=== PATIENT | female | born 1965 | race Caucasian/White ===

== ENCOUNTER 2018-08-12 09:17 | Emergency (ER) | payer OTHER ==
[2018-08-12] MEDS ORDERED: SODIUM CHLORIDE 1,000 ML IV SCH (09:30)
--- NOTE | 2018-08-12 09:39 | PDOC ---
History of Present Illness - General Chief Complaint: Weakness Stated Complaint: POSS CVA - History of Present Illness Initial Comments: 08/12/18 09:29 52yo F daily smoker with no PMH presents with L sided numbness. Pt reports she woke up at 6am in her [facility]. At 7:30AM, she she began to experience "ringing" in her head, but denies headache. At 8am, she began to experience b/l UE and LE numbness for which she took 1/2 a pill of xanax. At some point btwn 8am and arriving to the ED, she states the numbness became more pronounce on her LUE and LLE. She states she felt very nervous and almost like she was going to pass out, so she tried walking outside, and then tried taking a shower but when the symptoms persisted, she activated 911. She also reports feeling weak everywhere , more on the L side than the R side. She states she had a squeezing sensation to the L side of her chest which has now resolved. Denies radiation of this sensation. No hx similar sxs. Denies PMH but has not been to the doctor in many years. Denies abd pain. Denies fevers, chills, SOB, LE edema. Denies recent travel. Reports recent excessive stressors in her life. NIH Stroke Scale - Last Known Well Date/Time & Onset Date Last Known Well: 08/12/18 Time Last Known Well: 08:00 - Initial Evaluation Level of consciousness: Alert Ask patient the month and their age: Answers both correctly Ask patient to open & close eyes; make fist and let go: Obeys both correctly Best gaze (horizontal eye movement): Normal Visual field testing: No visual field loss Facial paresis (Show teeth/raise eyebrows/close eyes tight): Normal symmetrical movement Motor Function: Left Arm: Normal Motor Function: Right Arm: Normal (extends arm 90 (or 45) degrees for 10 seconds without drift Motor Function: Left Leg: Normal (extends leg 30 degrees for 5 seconds without drift) Motor Function: Right Leg: Normal (extends leg 30 degrees for 5 seconds without drift) Limb Ataxia: No ataxia Sensory(Use pinprick test arms,legs,trunk,face/side to side): Mild to moderate decrease in sensation Best language (Describe picture, name items, read sentences): No Aphasia Dysarthria (read several words): Normal articulation Extinction and Inattention: No abnormality - Total Score NIH Stroke Scale Score: 1 Past History - Past Medical History Allergies/Adverse Reactions: Allergies Allergy/AdvReac Type Severity Reaction Status Date / Time No Known Allergies Allergy Verified 08/12/18 09:20 Home Medications: Ambulatory Orders NK [No Known Home Medication] 08/12/18 Review of Systems - Review of Systems Comments:: 08/12/18 09:48 GENERAL/CONSTITUTIONAL: No fever or chills. No weakness. HEAD, EYES, EARS, NOSE AND THROAT: No change in vision. No ear pain or discharge. No sore throat. GASTROINTESTINAL: No nausea, vomiting, diarrhea or constipation. GENITOURINARY: No dysuria, frequency, or change in urination. CARDIOVASCULAR: +chest squeezing, no shortness of breath. RESPIRATORY: No cough, wheezing, or hemoptysis. MUSCULOSKELETAL: No joint or muscle swelling or pain. No neck or back pain. SKIN: No rash NEUROLOGIC: +ringing in head, no headache, vertigo, loss of consciousness, +L sided weakness and numbness ENDOCRINE: No increased thirst. No abnormal weight change. HEMATOLOGIC/LYMPHATIC: No anemia, easy bleeding, or history of blood clots. ALLERGIC/IMMUNOLOGIC: No hives or skin allergy. *Physical Exam - Physical Exam Comments: 08/12/18 09:49 GENERAL: Awake, alert, and fully oriented, in no acute distress. Appears nervous HEAD: No signs of trauma EYES: PERRLA, EOMI, sclera anicteric, conjunctiva clear ENT: Oropharynx clear without exudates. Moist mucosa NECK: Normal ROM, supple, no lymphadenopathy, JVD, or masses LUNGS: Breath sounds equal, clear to auscultation bilaterally. No wheezes, and no crackles HEART: Regular rate and rhythm, normal S1 and S2, no murmurs, rubs or gallops ABDOMEN: Soft, nontender, normoactive bowel sounds. No guarding, no rebound. No masses EXTREMITIES: Normal range of motion, no edema. No cords, erythema, or tenderness NEUROLOGICAL: Normal speech, cranial nerves intact, negative pronator drift, 5/ 5 strength in all 4 extremities, decreased sensation to light touch on LUE and LLE, normal cerebellar exam, normal gait, normal reflexes and tone SKIN: Warm, Dry, normal turgor, no rashes or lesions noted. Heart Score/ECG Review #1 08/12/18 09:51 Twelve-lead EKG was performed and reviewed by me. Normal sinus rhythm, rate 82. Normal axis. No ST elevations. ED Treatment Course - LABORATORY CBC & Chemistry Diagram: 08/12/18 05:51 08/12/18 05:51 - RADIOLOGY Radiology Studies Ordered: Category Date Time Status HEAD CT (STROKE) [CT] Stat CT Scan 08/12/18 09:21 Ordered Medical Decision Making - Medical Decision Making 08/12/18 09:56 52yo F presents to the ED with b/l numbness to UE and LE, now more decreased sensation on LUE and LLE. +decreased sensation to light touch in LUE and LLE. NIHSS 1. CTH grossly negative on my read. FS normal. Case discussed with Dr. Gerard, in light of atypical CVA story and low NIHSS, will not give TPA Plan to do cardiac w/u in light of resolved chest squeezing, although EKG non ischemic Per Dr. Gerard, will also obtain MRI head for furher neuro evaluation Aortic dissection also a consideration due to neuro + cardiac sxs, although pt' s UE and LE pulses are equal, as are her blood pressures b/l 08/12/18 13:52 CTH neg CTA chest/abd/pelv neg for dissection Numbness has decreased after reglan MRI pending DDx includes CVA vs conversion d/o Case discussed with Dr. Austin, pt accepted to Dr. Pinedo's service Case discussed in detail with admitting physician including history, physical exam and ancillary studies. Admitting physician has assumed care for the patient, will follow all pending diagnostics and will complete the evaluation and treatment. *DC/Admit/Observation/Transfer Diagnosis at time of Disposition: Left sided numbness - Discharge Dispostion Condition at time of disposition: Stable Decision to Admit order: Yes - Referrals - Patient Instructions - Post Discharge Activity - Attestations Physician Attestion: 08/12/18 13:55 I, Dr. Pete Causey MD, attest that this document has been prepared under my direction and personally reviewed by me in its entirety. I further attest, that it accurately reflects all work, treatment, procedures and medical decision -making performed by me.
[2018-08-12 09:53] LABS: BASO % 0.7 % (0-2.0); EOS % 0.5 % (0-4.5); HEMOGLOBIN 15.6 GM/dL (10.7-15.3); LYMPH % 19.4 % (8-40); MCH 35.2 pg (25.7-33.7); MCHC 35.5 g/dl (32.0-36.0); MEAN CELL VOLUME 99.1 fl (80-96); MEAN PLT VOLUME 8.4 fl (7.5-11.1); MONO % 6.9 % (3.8-10.2); NEUT % 72.5 % (42.8-82.8); PLATELET COUNT 340 K/MM3 (134-434); RBC 4.44 M/mm3 (3.60-5.2); RDW 14.5 % (11.6-15.6)
[2018-08-12 09:58] LABS: INR 1.03 (0.83-1.09); PROTHROMBIN TIME (PATIENT) 12.2 SEC (9.7-13.0)
[2018-08-12] MEDS ORDERED: METOCLOPRAMIDE HCL INJECTION 10 MG/2 ML VIAL IVPB ONE (10:19)
[2018-08-12 10:20] VITALS: BMI 25.8
[2018-08-12] MEDS ORDERED: METOCLOPRAMIDE HCL INJECTION 10 MG/2 ML VIAL ONE (10:28)
[2018-08-12 10:29] LABS: ALK PHOS 83 U/L (45-117); ANION GAP 7 MMOL/L (8-16); BILIRUBIN,TOTAL 0.6 mg/dL (0.2-1); BLOOD UREA NITROGEN 12 mg/dL (7-18); CALCIUM 9.3 mg/dL (8.5-10.1); CHLORIDE 103 mmol/L (98-107); CHOLESTEROL 254 mg/dL (50-200); CO2 27 mmol/L (21-32); CREATININE 0.6 mg/dL (0.55-1.3); GLUCOSE,RANDOM 110 mg/dL (74-106); HDL CHOLESTEROL 79 mg/dL (40-60); POTASSIUM 3.6 mmol/L (3.5-5.1); SGOT/AST 29 U/L (15-37); SGPT/ALT 28 U/L (13-61); SODIUM 138 mmol/L (136-145); TOT PROT 7.8 g/dl (6.4-8.2); TRIGLYCERIDES 100 mg/dL (0-150)
--- NOTE | 2018-08-12 14:07 | PDOC ---
*Physical Exam - Vital Signs Last Vital Signs Temp Pulse Resp BP Pulse Ox 97.8 F 82 16 147/96 100 08/12/18 09:28 08/12/18 09:28 08/12/18 09:28 08/12/18 09:28 08/12/18 09:47 ED Treatment Course - LABORATORY CBC & Chemistry Diagram: 08/12/18 05:51 08/12/18 05:51 - ADDITIONAL ORDERS Additional order review: Laboratory Results 08/12/18 08/12/18 08/12/18 05:51 05:51 05:51 PT with INR 12.20 INR 1.03 Sodium 138 Potassium 3.6 Chloride 103 Carbon Dioxide 27 Anion Gap 7 L BUN 12 Creatinine 0.6 Creat Clearance w eGFR 105.40 Random Glucose 110 H Calcium 9.3 Total Bilirubin 0.6 AST 29 ALT 28 Alkaline Phosphatase 83 Creatine Kinase 41 Troponin I < 0.02 Total Protein 7.8 Albumin 4.0 Triglycerides 100 Cholesterol 254 H Total LDL Cholesterol 162 H HDL Cholesterol 79 H Blood Type O POSITIVE Antibody Screen Negative 08/12/18 05:51 RBC 4.44 MCV 99.1 H MCHC 35.5 RDW 14.5 MPV 8.4 Neutrophils % 72.5 Lymphocytes % 19.4 Monocytes % 6.9 Eosinophils % 0.5 Basophils % 0.7 - RADIOLOGY Radiology Studies Ordered: Category Date Time Status HEAD CT (STROKE) [CT] Stat CT Scan 08/12/18 09:30 Completed BRAIN MRI W/O CONTRAST [MRI] Stat MRI 08/12/18 10:05 Ordered - Medications Given in the ED: ED Medications Discontinued Medications Generic Name Dose Route Start Last Admin Trade Name Freq PRN Reason Stop Dose Admin Metoclopramide HCl 10 mg 08/12/18 10:19 08/12/18 10:42 Reglan Injection - IVPB 08/12/18 10:20 10 mg ONCE ONE Administration Progress Note - Progress Note Progress Note: Pt was admitted to hospitalist. When hospitalist came down for evaluation, patient is now refusing admission and MRI and wants to sign out AGAINST MEDICAL ADVICE. States she will follow-up with her neurologist. She states that she wants to leave because she has to take care of her sick daughter. The patient is clinically sober, free from distracting injury, appears to have intact insight and judgment and reason and in my opinion has the capacity to make decisions. The patient presents with left sided numbness. I have explained that I am concerned that this may represent a stroke; she has verbalized an understanding of my concerns. I have told the patient that while her CT scans were normal, she could still have a stroke. I have discussed the need for admission, an MRI, and neurology evaluation to get more information about potential causes of the patients left sided numbness. I have told the patient that if she leaves and has persistent left sided numbness, she could get much worse, could become critically ill, and could possibly become disabled or . The patient is not willing to undergo an MRI, observation, or neurology consult. She is unwilling to stay overnight for monitoring. She is refusing any further care and is leaving against medical advice. I am unable to convince the patient to stay, I have asked her to return as soon as possible to complete her evaluation. I have referred her to a neurologist and primary care doctor if she prefers to follow up as an outpatient. I have answered all her questions. *DC/Admit/Observation/Transfer Diagnosis at time of Disposition: Left sided numbness - Discharge Dispostion Disposition: AGAINST MEDICAL ADVICE Condition at time of disposition: Unchanged/Unknown - Referrals - Patient Instructions - Post Discharge Activity - Attestations Physician Attestion: 08/12/18 14:24 I, Dr. Pete Causey MD, attest that this document has been prepared under my direction and personally reviewed by me in its entirety. I further attest, that it accurately reflects all work, treatment, procedures and medical decision -making performed by me.
[2018-08-12 14:26] VITALS: BP 113/78; PULSE 72; TEMP 98
--- NOTE | 2018-08-12 14:38 | EKG ---
Test Reason : Blood Pressure : / mmHG Vent. Rate : 082 BPM Atrial Rate : 086 BPM P-R Int : 130 ms QRS Dur : 080 ms QT Int : 410 ms P-R-T Axes : 057 041 040 degrees QTc Int : 479 ms POOR DATA QUALITY, INTERPRETATION MAY BE ADVERSELY AFFECTED NORMAL SINUS RHYTHM WITH SINUS ARRHYTHMIA POSSIBLE LEFT ATRIAL ENLARGEMENT BORDERLINE ECG WHEN COMPARED WITH ECG OF 09-JAN-2010 08:36, NO SIGNIFICANT CHANGE WAS FOUND Confirmed by Inocencio Rivera MD ([id number]) on 08/12/2018 2:38:03 PM Referred By: Confirmed By:Inocencio Rivera MD
--- NOTE | 2018-08-12 15:22 | HOSP ---
Physical Examination Vital Signs: Vital Signs Temperature 98 F 08/12/18 14:20 Pulse Rate 72 08/12/18 14:20 Respiratory Rate 18 08/12/18 14:20 Blood Pressure 113/78 08/12/18 14:20 O2 Sat by Pulse Oximetry (%) 100 08/12/18 14:20 Findings/Remarks: Called to see patient for admission. However, before pt was to be admitted, pt stated that she did not want to be evaluated. Discussed importance of brain MRI for pt condition, as well as additional testing such as tele monitoring, further neuro eval. etc. Expressed verbal understanding. Signed AMA form, given to ED provider. D/w ED provider and nurse Labs: CBC, BMP 08/12/18 05:51 08/12/18 05:51 Visit type - Emergency Visit Emergency Visit: Yes Care time: The patient presented to the Emergency Department on the above date and was hospitalized for further evaluation of their emergent condition. - New Patient This patient is new to me today: Yes Date on this admission: 08/12/18 - Critical Care Critical Care patient: No
--- NOTE | 2018-08-12 19:26 | CONSULT ---
Consult - text type - Consultation Consultation Note: NEUROLOGY CONSULT APPRECIATED: This 52 yo RH female is a vague historian with no known medical problems or home medications. Maria E at bedside aiding in translation. She reports she was sent to hospital on behalf of PCP Dr. Martinez for reports of chest pain, however it is unclear if she has been followed by any provider. Pt reports previously residing in a NH, however cannot recall name. She reports history of progressive gait dysfunction and falls, with ongoing neck and LBP after most recent fall. She reports previously using a cane to ambulate. Head CT (reviewed): essentially normal study CTA C/A/P: no acute pathology WBC 11.0 MCV 99.1 JAYNE: Cor Reg. No bruit. Sl reduced Neck ROM. Neg SLR. Early contractures at knees R> L. R shoulder with healed surgical scar and limited shoulder mechanics. NEURO: Mentation/Speech: [facility]. October 12, 2018. 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 06/29 recall at 3. CNII-CNXII: Possible L field cut with neglect. Full binocular moran appreciated. Reduced rapid tongue. Gag ok. No facial. Motor: No L drift. Strong grasps B/L. Reflexes brisk. Min cogwheeling appreciated R >> L. Rigidity at knees R >> L. Decreased SIOBHAN B/L. Toes downgoing. Coordination: No L FTN dystaxia. Sensation: Min reduced vibration toes. Gait: Cannot raise to standing position Impression: 1. 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 Progressive Gait dysfunction (multi-factorial with contributions from contractures, possible neck involvement) 3. R/O Cervical Myelopathy Suggest: Await UA, C & S MRI of brain (C-) MRI of C spine (C-) Order B12, TSH, RPR, Iron studies PT for passive ROM for contracture Pt will likely require higher level of care (SNF) Thank you very much, Scot Gerard MD
== END 2018-08-12 14:25 | disposition left against medical advice (07) ==
LOC: JER 09:17 → UNDOADMIN 10:23 → JERBED 10:23 → JER 14:25 → UNDODISIN 14:25
PROC: 3E0337Z Introduction of Electrolytic and Water Balance Substance into Peripheral Vein, Percutaneous Approach (ICD-10-PCS; principal; 2018-08-12)
PROC: 3E033GC Introduction of Other Therapeutic Substance into Peripheral Vein, Percutaneous Approach (ICD-10-PCS; 2018-08-12)
DX: R20.0 Anesthesia of skin (principal); R26.89 Other abnormalities of gait and mobility; M54.89 Other dorsalgia; M54.2 Cervicalgia; Z91.81 History of falling
CPT/HCPCS: 36415; 70450-TC; 71275-TC; 74174-TC; 80053; 82465; 82550; 82607; 83718; 83721; 84443; 84478; 84484; 85025; 85610; 86850; 86900; 86901; 93005; 93010; 96361; 96374; 99285-25; J7030

== ENCOUNTER 2021-08-23 17:51 | Emergency (ER) | payer OTHER ==
[2021-08-23 18:08] VITALS: TEMP 98.3; BMI 26.9
[2021-08-23] MEDS ORDERED: ACETAMINOPHEN 1000 MG/100 ML BAG IVPB ONE (18:26)
[2021-08-23] MEDS ORDERED: SODIUM CHLORIDE 0.9% 500 ML INFUS.BAG IV ONE (18:26)
[2021-08-23] MEDS ORDERED: METOCLOPRAMIDE HCL INJECTION 10 MG/2 ML VIAL IVPB ONE (18:27)
[2021-08-23] MEDS ORDERED: METOCLOPRAMIDE HCL 10 MG TABLET (FP) PO ONE (18:37)
[2021-08-23] MEDS ORDERED: METOCLOPRAMIDE HCL INJECTION 10 MG/2 ML VIAL ONE (18:37)
[2021-08-23] MEDS ORDERED: ACETAMINOPHEN INJECTION 100 ML IVPB ONE (18:38)
[2021-08-23 19:09] LABS: BASO % 0.4 % (0-2.0); EOS % 0.2 % (0-4.5); HEMATOCRIT 45.9 % (32.4-45.2); HEMOGLOBIN 15.9 GM/dL (10.7-15.3); LYMPH % 18.7 % (8-40); MCHC 34.5 g/dl (32.0-36.0); MEAN CELL VOLUME 101.2 fl (80-96); MONO % 5.2 % (3.8-10.2); NEUT % 75.5 % (42.8-82.8); PLATELET COUNT 276 10^3/uL (134-434); RBC 4.53 M/mm3 (3.60-5.2); RDW 13.2 % (11.6-15.6); WHITE BLOOD COUNT 10.6 K/mm3 (4.0-10.0)
[2021-08-23 19:25] LABS: INR 1.1 (0.83-1.09); PROTHROMBIN TIME (PATIENT) 12.7 SEC (9.7-13.0)
[2021-08-23 19:27] LABS: ACTIVATED PTT 37.4 SECONDS (25.2-36.5)
[2021-08-23 19:31] LABS: ALBUMIN 3.9 g/dl (3.4-5.0)
[2021-08-23 19:34] LABS: CREATININE 0.5 mg/dL (0.55-1.3)
[2021-08-23 19:36] LABS: BILIRUBIN,TOTAL 1.4 mg/dL (0.2-1); TOT PROT 7.7 g/dl (6.4-8.2)
[2021-08-23 20:27] VITALS: BP 139/90; PULSE 81
== END 2021-08-23 20:28 | disposition home or self-care (01) ==
LOC: JER 17:51
PROC: 3E0333Z Introduction of Anti-inflammatory into Peripheral Vein, Percutaneous Approach (ICD-10-PCS; principal; 2021-08-23)
PROC: 3E033GC Introduction of Other Therapeutic Substance into Peripheral Vein, Percutaneous Approach (ICD-10-PCS; 2021-08-23)
DX: R51.9 Headache, unspecified (principal)
CPT/HCPCS: 36415; 70450-TC; 80053; 85025; 85610; 85730; 93005; 93010; 96374; 96375; 99285-25